=== PATIENT | male | born 1970 | race Caucasian/White ===

== ENCOUNTER 2018-09-24 21:20 | Emergency (ER) | payer BC, OTHER ==
[~2018-09-24] VITALS: Ht 182.9 cm; Wt 136.1 kg
[~2018-09-24 21:20] MED LIST: AMLO5TAB4 PO; COLC0.6C PO; LISI10TA2 PO; MYCO500T PO; OMEP20TA9 PO; SIRO2TAB PO; TACR1CAP4 PO
[2018-09-24] MEDS ORDERED: DILAUDID IM STA (21:36)
[2018-09-24] MEDS ORDERED: DECADRON IM STA (21:36)
[2018-09-24] MEDS ORDERED: DILAUDID ONE (21:36)
[2018-09-24] MEDS ORDERED: DECADRON ONE (21:36)
[2018-09-24 21:49] LABS: BASOPHIL % 0.2 % (0.0-0.2); EOSINOPHIL # 0.2 10^3/uL (0.0-0.2); EOSINOPHIL % 1.5 % (0.0-5.0); HEMOGLOBIN 13.7 g/dL (13.9-16.3); LYMPHOCYTES # 3.6 10^3/uL (1.0-4.8); LYMPHOCYTES % 28.6 % (24.0-44.0); MEAN CELL HGB 30.4 pg (26-34); MEAN CELL HGB CONCENTRATION 33.7 g/dL (33-37); MEAN PLATELET VOLUME 10.1 fL (7.8-11.0); MONOCYTES # 1.3 10^3/uL (0.3-0.8); MONOCYTES % 10.4 % (5.0-12.0); NEUTROPHIL # 7.4 10^3/uL (1.8-7.7); NEUTROPHILS % 58.9 % (41.0-85.0); RED CELL DISTRIBUTION WIDTH 13.6 % (11.5-14.5); WHITE BLOOD CELL 12.5 10^3/uL (4.5-11.0)
--- NOTE | 2018-09-24 22:05 | ER.PDOC ---
General Chief Complaint: Extremities Stated Complaint: FOOT GOUT Time seen by MD: 21:40 Source: patient, family Exam Limitations: no limitations History of Present Illness Initial Comments 48 YO MALE WITH HISTORY OF GOUT PRESENTS WITH LEFT ANKLE PAIN AND SWELLING STARTED THIS MORNING. THE PAIN IS THROBBING, 5/10. NO FEVER. HE DENIES INJURY. HE HAS NOT TAKEN ANY ANALGESICS FOR PAIN . Onset: this morning Where: home Exacerbated By: walking movement Relieved By: nothing Prior symptoms/Treatment: Similar symptoms previous Allergies: Coded Allergies: No Known Allergies (Unverified , 05/15/13) Home Meds Reported Medications Tacrolimus (PROGRAF) 1 Mg Capsule, 4 CAP PO HS, #120 CAP 11 Refills 06/10/18 Tacrolimus (PROGRAF) 1 Mg Capsule, 3 CAP PO DAILY24, #540 CAP 3 Refills 06/10/18 Colchicine (Colchicine) 0.6 Mg Capsule, 0.6 MG PO DAILY24, CAPSULE 06/10/18 Omeprazole (OMEPRAZOLE) 20 Mg Tablet.dr, 20 MG PO DAILY 05/15/13 Mycophenolate Mofetil (CELLCEPT) 500 Mg Tablet, 500 MG PO BID 05/15/13 Lisinopril (LISINOPRIL) 10 Mg Tablet, 10 MG PO DAILY 05/15/13 Amlodipine Besylate (NORVASC) 5 Mg Tablet, 5 MG PO DAILY 05/15/13 Past Medical History Medical History: hypertension, renal disease, other (GOUT) Family History Significant Family History: no pertinent family hx Social History Smoking: non-smoker Alcohol Use: none Drug Use: none Reviewed Nursing Reviewed: Nursing Assessment Review of Systems Constitutional: denies chills, denies fever, denies malaise, denies weakness EENTM: no symptoms reported Respiratory: denies cough, denies orthopnea, denies shortness of breath Cardiovascular: denies chest pain, denies edema, denies palpitations Gastrointestinal: denies abdominal pain Musculoskeletal: denies back pain; gout, joint pain, joint swelling Skin: denies change in color Psychiatric/Neurological: denies anxiety Physical Exam General Appearance: Mild Distress 1 - Lower Extremity: tenderness (LEFT ANKLE TENDER, WARMTH, NO ERYTHEMA.), swelling Joint Exam: limited ROM by pain (LEFT ANKLE), antalgic gait Vascular: no vascular compromise Neuro/Psych: motor nml, oriented x3 Skin: color nml Back/Neck: nml inspection Respiratory: no resp distress CVS: reg rate & rhythm Results/Orders Results/Orders Orders - SONY ROSARIO MD Cbc With Auto Diff (09/24/18 21:36) Comprehensive Metabolic Panel (09/24/18 21:36) Uric Acid (09/24/18 21:36) Dexamethasone Sod Phosphate (Decadron) (09/24/18 21:36) Hydromorphone Inj (Dilaudid) (09/24/18 21:36) Dexamethasone Sod Phosphate (Decadron) (09/24/18 21:36) Hydromorphone Inj (Dilaudid) (09/24/18 21:36) Vital Signs Date Time Temp Pulse Resp B/P (MAP) Pulse Ox O2 Delivery O2 Flow Rate FiO2 09/24/18 23:39 98.3 82 16 96 Room Air 09/24/18 21:31 98.3 98.3 09/24/18 21:31 98.3 81 16 98.3 09/24/18 21:31 98.3 81 16 96 Room Air 98.3 Administered Medications Medications (Trade) Dose Ordered Sig/Sherlyn Route PRN Reason Start Time Stop Time Status Last Admin Dose Admin Dexamethasone Sodium Phosphate (Decadron) 10 mg STAT STAT IM 09/24/18 21:36 09/24/18 21:40 DC 09/24/18 21:46 10 MG Hydromorphone HCl (Dilaudid) 1 mg STAT STAT IM 09/24/18 21:36 09/24/18 21:40 DC 09/24/18 21:45 1 MG Laboratory Tests Test 09/24/18 21:40 White Blood Count 12.5 10^3/uL (4.5-11.0) H Red Blood Count 4.51 10^6/uL (4.50-5.90) Hemoglobin 13.7 g/dL (13.9-16.3) L Hematocrit 40.6 % (37.0-53.0) Mean Corpuscular Volume 90.0 fL (78-100) Mean Corpuscular Hemoglobin 30.4 pg (26-34) Mean Corpuscular Hemoglobin Concent 33.7 g/dL (33-37) Red Cell Distribution Width 13.6 % (11.5-14.5) Platelet Count 152 10^3/uL (150-400) Mean Platelet Volume 10.1 fL (7.8-11.0) Neutrophils (%) (Auto) 58.9 % (41.0-85.0) Lymphocytes (%) (Auto) 28.6 % (24.0-44.0) Monocytes (%) (Auto) 10.4 % (5.0-12.0) Neutrophils # (Auto) 7.4 10^3/uL (1.8-7.7) Lymphocytes # (Auto) 3.6 10^3/uL (1.0-4.8) Monocytes # (Auto) 1.3 10^3/uL (0.3-0.8) H Absolute Immature Granulocyte (auto 0.05 10^3 u/L (0-2) Immature Granulocytes % 0.40 % (0.00-0.50) Eosinophils % 1.5 % (0.0-5.0) Basophils % 0.2 % (0.0-0.2) Basophils # 0.0 10^3/uL (0.0-0.1) Eosinophil Count 0.2 10^3/uL (0.0-0.2) Sodium Level 143 mmol/L (132-145) # Potassium Level 4.7 mmol/L (3.6-5.2) Chloride Level 107.0 mmol/L (96-109) Carbon Dioxide Level 24.2 mmol/L (20.0-32) Anion Gap 16.5 Blood Urea Nitrogen 29 mg/dL (7-18) H Creatinine 1.60 mg/dL (0.59-1.40) H Estimated GFR () 55.6 (>/=60) BUN/Creatinine Ratio 18.0 Glucose Level 137 mg/dL (70-110) H Uric Acid 8.0 mg/dL (3.5-7.2) H Calcium Level 7.5 mg/dL (8.4-10.5) L Total Bilirubin 0.3 mg/dL (0.2-1.0) Aspartate Amino Transferase (AST) 11 U/L (0-35) Alanine Aminotransferase (ALT) 28 U/L (12-78) Alkaline Phosphatase 89 U/L (50-136) Total Protein 7.2 g/dL (6.4-8.2) Albumin 3.8 g/dL (3.4-5.0) Globulin 3.4 Progress Progress 2310- PATIENT FEELS BETTER. LABS REVIEWED. SIMILAR SYMPTOMS OF GOUT ATTACKS SEVERAL TIMES YEARLY. Departure Time of Disposition: 23:24 Disposition: 01 HOME, SELF-CARE Impression: Primary Impression: Gout attack Condition: Improved Patient Instructions: Gout, [id number] Referrals: JUAN PABLO BEASLEY (PCP) PRIMARY CARE PROVIDER FOLLOW UP WITH YOUR PCP FOR RECHECK IN 1-2 DAYS RETURN TO THE ER IF YOUR CONDITION WORSEN Additional Instructions: DRINK PLENTY OF FLUID TO KEEP YOU HYDRATED. ICE PACK TO AFFECTED ANKLE FOR PAIN CONTROL. Comments TYLENOL #3 Duration or Time Spent with Pa: 45 MIN SONY ROSARIO MD Sep 24, 2018 22:05
[2018-09-24 22:15] LABS: CALCIUM 7.5 mg/dL (8.4-10.5); CARBON DIOXIDE 24.2 mmol/L (20.0-32)
[2018-09-24 23:39] VITALS: BP 142/98
== END 2018-09-24 23:30 | disposition home or self-care (01) ==
LOC: ER 21:20
DX: M10.9 Gout, unspecified (principal)
CPT/HCPCS: 36415; 80053; 84550; 85025; 96372; 99285; J1100; J1170; 99284

== ENCOUNTER 2018-10-13 20:32 | Emergency (ER) | payer BC, OTHER ==
[~2018-10-13] VITALS: Ht 182.9 cm; Wt 136.1 kg
[2018-10-13 20:53] VITALS: BP 148/108
[2018-10-13] MEDS ORDERED: SOLU-MEDROL IM STA (21:47)
--- NOTE | 2018-10-13 21:49 | ER.PDOC ---
General Chief Complaint: Extremities Stated Complaint: GOUT TRAVEL OUT OF US: No Time seen by MD: 21:24 Source: patient Exam Limitations: no limitations History of Present Illness Initial Comments pain in right knee for two days with history of multiple gout attacks in knees and ankles and toes, pt states no fever or injury or calf pain or swelling only pain in right knee. Timing/Duration: other Severity: moderate Modifying Factors: improves with medication, improves with movement Associated Symptoms: denies symptoms Allergies: Coded Allergies: No Known Allergies (Unverified , 05/15/13) Home Meds Reported Medications Tacrolimus (PROGRAF) 1 Mg Capsule, 4 CAP PO HS, #120 CAP 11 Refills 06/10/18 Tacrolimus (PROGRAF) 1 Mg Capsule, 3 CAP PO DAILY24, #540 CAP 3 Refills 06/10/18 Colchicine (Colchicine) 0.6 Mg Capsule, 0.6 MG PO DAILY24, CAPSULE 06/10/18 Omeprazole (OMEPRAZOLE) 20 Mg Tablet.dr, 20 MG PO DAILY 05/15/13 Mycophenolate Mofetil (CELLCEPT) 500 Mg Tablet, 500 MG PO BID 05/15/13 Lisinopril (LISINOPRIL) 10 Mg Tablet, 10 MG PO DAILY 05/15/13 Amlodipine Besylate (NORVASC) 5 Mg Tablet, 5 MG PO DAILY 05/15/13 Past Medical History Medical History: high cholesterol, hypertension, renal disease, other Social History Smoking: non-smoker Alcohol Use: rarely Drug Use: none Review of Systems Constitutional: denies chills, denies fever Respiratory: denies cough Cardiovascular: denies chest pain, denies palpitations Gastrointestinal: denies abdominal pain Genitourinary: denies dysuria, denies hematuria Musculoskeletal: denies back pain Skin: denies change in color, denies rash Psychiatric/Neurological: denies headache Hematologic/Lymphatic: denies blood clots Physical Exam General Appearance: No Apparent Distress, WD/WN EENT: eyes nml inspection, nml ENT inspection Neck: Non-Tender Respiratory: chest non-tender, lungs clear CVS: reg rate & rhythm, no murmur Gastrointestinal: Normal Bowel Sounds Extremities: Other Neurologic/Psychiatric: sharepoint administrator II-XII NML as Tested, No Motor/Sensory Deficits Skin: Normal Color Comments right knee swelling no erythema, pos pain to palpation no calf swelling or tenderness. neuro vasc intact. Results/Orders Results/Orders Orders - NAOMI VILLANUEVA MD Methylprednisolone Sod Succ (Solu-Medrol (10/13/18 21:47) Morphine Sulfate (Morphine Sulfate) (10/13/18 22:00) Methylprednisolone Sod Succ (Solu-Medrol (10/13/18 22:05) Vital Signs Date Time Temp Pulse Resp B/P (MAP) Pulse Ox O2 Delivery O2 Flow Rate FiO2 10/13/18 22:58 98.0 107 22 94 Room Air 10/13/18 20:53 98.0 107 22 148/108 (121) 94 Room Air 98.0 10/13/18 20:53 98.0 107 22 94 Room Air 98.0 10/13/18 20:53 98.0 107 22 98.0 09/24/18 23:39 82 Administered Medications Medications (Trade) Dose Ordered Sig/Sherlyn Route PRN Reason Start Time Stop Time Status Last Admin Dose Admin Methylprednisolone Sodium Succinate (Solu-Medrol) 125 mg STAT STAT IM 10/13/18 21:47 10/13/18 23:00 DC 10/13/18 22:11 125 MG Morphine Sulfate (Morphine Sulfate) 4 mg STAT ONCE IV 10/13/18 22:00 10/13/18 23:00 DC 10/13/18 22:11 4 MG Progress Progress patient offered joint aspiration today to rule out septic joint, patient refused and understands cannot rule out life threatening conditions without testing which was refused in er today. Course Sepsis Screening Results: Posi: POSITIVE SEPSIS RISK Duration or Total Time Spent w: 45 MIN Vitals & review Data Vital Sign - Last 24 Hours 09/24/18 10/13/18 10/13/18 10/13/18 23:39 20:53 20:53 20:53 Temp 98.0 98.0 98.0 98.0 98.0 98.0 Pulse 82 107 107 107 Resp 22 22 22 B/P (MAP) 148/108 (121) Pulse Ox 94 94 O2 Delivery Room Air Room Air 10/13/18 22:58 Temp 98.0 Pulse 107 Resp 22 Pulse Ox 94 O2 Delivery Room Air Sepsis Infection Criteria Pres: None O2 Sat by Pulse Oximetry: 94 Departure Time of Disposition: 21:45 Disposition: 01 HOME, SELF-CARE Impression: Primary Impression: Gouty arthritis Condition: Stable Patient Instructions: Gout Referrals: JUAN PABLO BEASLEY-C (PCP) PRIMARY CARE PROVIDER Additional Instructions: a definite diagnosis such as septic joint cannot be ruled out as you do not wish joint aspiration in the er today. Duration or Time Spent with Pa: 15 NAOMI VILLANUEVA MD Oct 13, 2018 21:48
[2018-10-13] MEDS ORDERED: MORPHINE SULFATE IV ONE (22:00)
[2018-10-13] MEDS ORDERED: SOLU-MEDROL ONE (22:05)
[2018-10-13 22:58] VITALS: BP 148/108
== END 2018-10-13 22:50 | disposition home or self-care (01) ==
LOC: ER 20:32
DX: M10.9 Gout, unspecified (principal); I10 Essential (primary) hypertension; E78.00 Pure hypercholesterolemia, unspecified; Z79.899 Other long term (current) drug therapy
CPT/HCPCS: 96372; 96374; 99284; J2930